=== PATIENT | male | born 1960 | race Caucasian/White ===

== ENCOUNTER 2017-06-25 14:31 | Observation (INO) | payer MEDICARE, OTHER ==
[2017-06-25 16:39] LABS: ADD MAN DIFF? NO
[2017-06-25 16:41] LABS: WHITE BLOOD COUNT 7.4 10^3/ul (4.8-10.8)
[2017-06-25 16:41] LABS: BASOPHILS % 0.5 % (0.0-2.0); EOSINOPHILS # 0.1 10^3/ul (0.0-0.5); EOSINOPHILS % 1.2 % (0.0-7.0); HEMATOCRIT 40.2 % (42.0-52.0); HEMOGLOBIN 13.7 g/dl (14.0-18.0); LYMPHOCYTES # 1.9 10^3/ul (0.8-2.9); LYMPHOCYTES % 25.2 % (15.0-51.0); MEAN CORPUSCULAR HEMOGLOBIN 29.2 pg (29.0-33.0); MEAN CORPUSCULAR HGB CONC 34.1 g/dl (32.0-37.0); MEAN CORPUSCULAR VOLUME 85.7 fl (82.0-101.0); MEAN PLATELET VOLUME 9.7 fl (7.4-10.4); MONOCYTE # 0.5 10^3/ul (0.3-0.9); MONOCYTES % 6.8 % (0.0-11.0); NEUTROPHIL # 4.9 10^3/ul (1.6-7.5); NEUTROPHILS % 65.9 % (39.0-77.0); PLATELET COUNT 225 10^3/UL (140-415); RED BLOOD COUNT 4.69 10^6/ul (4.70-6.10); RED CELL DISTRIBUTION WIDTH 12.9 % (11.5-14.5)
[2017-06-25] MEDS: ASPIRIN 81 MG TAB PO (16:44)
[2017-06-25 17:08] LABS: ANION GAP 18 (8-16); BLOOD UREA NITROGEN 9 mg/dl (7-20); CALCIUM 9.8 mg/dl (8.4-10.2); CARBON DIOXIDE 24 mmol/L (21-31); CHLORIDE 108 mmol/L (97-110); CREATININE 0.82 mg/dl (0.61-1.24); GLUCOSE 94 mg/dl (70-220); POTASSIUM 3.6 mmol/L (3.5-5.1); SODIUM 146 mmol/L (135-144)
[2017-06-25 17:14] LABS: PROTIME 13.3 Sec (11.9-14.9)
[2017-06-25 17:20] LABS: B-TYPE NATRIURETIC PEPTIDE 116 PG/ML (0-125)
[2017-06-25 17:28] LABS: TROPONIN-I < 0.012 ng/ml (0.00-0.12)
[2017-06-25] MEDS ORDERED: ONDANSETRON 4 MG INJ IV ×2 (18:00→19:00)
[2017-06-25] MEDS ORDERED: ACETAMINOPHEN 325 MG TAB PO ×2 (18:00→19:00)
[2017-06-25] MEDS ORDERED: MAGNESIUM HYDROXIDE 30ML CUP PO (19:00)
[2017-06-25] MEDS ORDERED: morphine 2 MG INJ IV (19:00)
[2017-06-25] MEDS ORDERED: DIPHENHYDRAMINE 50 MG CAP PO (19:00)
[2017-06-25] MEDS ORDERED: NACL 0.9% 3 ML SYG IV (19:00)
[2017-06-25] MEDS ORDERED: LORAZEPAM 0.5 MG TAB PO (19:00)
[2017-06-25] MEDS ORDERED: HYDROCODONE/APAP (5/325) TAB PO (19:00)
[2017-06-25] MEDS ORDERED: NITROGLYCERIN (SL) 0.4 MG TAB SL (19:00)
[2017-06-25] MEDS ORDERED: DOCUSATE SODIUM 100 MG CAP PO (19:00)
[2017-06-25] MEDS: [UNRECOGNIZED DRUG - REMARK] XX (19:30)
[2017-06-25 19:37] LABS: CHOL/HDL RATIO 4.5 RATIO; HDL CHOLESTEROL 47 mg/dl (28-71); LDL CHOLESTEROL,CALCULATED 90 mg/dl; TRIGLYCERIDES 374 mg/dl (0-149)
[2017-06-25 19:37] LABS: CHOLESTEROL 212 mg/dl (100-200)
[2017-06-25 19:53] LABS: HEMOGLOBIN A1C 5.5 % (0-5.9)
[2017-06-25] MEDS ORDERED: hydrALAzine 20 MG INJ IV (20:00)
[2017-06-25] MEDS: ATORVASTATIN 40 MG TAB PO (20:18)
[2017-06-25] MEDS: LOSARTAN 50 MG TAB PO (20:18)
[2017-06-25] MEDS ORDERED: TRIFLUOPERAZINE HCL PO (21:00)
[2017-06-26 00:29] LABS: CREATINE KINASE 125 IU/L (23-200)
[2017-06-26 00:33] LABS: CK INDEX 0.6
[2017-06-26 00:34] LABS: CK-MB 0.76 ng/ml (0.0-2.4); TROPONIN-I < 0.012 ng/ml (0.00-0.12)
[2017-06-26 05:54] LABS: ADD MAN DIFF? NO
[2017-06-26 05:58] LABS: WHITE BLOOD COUNT 7.2 10^3/ul (4.8-10.8)
[2017-06-26 05:58] LABS: BASOPHILS % 0.6 % (0.0-2.0); EOSINOPHILS # 0.2 10^3/ul (0.0-0.5); EOSINOPHILS % 2.8 % (0.0-7.0); HEMATOCRIT 37.7 % (42.0-52.0); HEMOGLOBIN 12.6 g/dl (14.0-18.0); LYMPHOCYTES # 2.5 10^3/ul (0.8-2.9); LYMPHOCYTES % 35.2 % (15.0-51.0); MEAN CORPUSCULAR HEMOGLOBIN 29.2 pg (29.0-33.0); MEAN CORPUSCULAR HGB CONC 33.4 g/dl (32.0-37.0); MEAN CORPUSCULAR VOLUME 87.3 fl (82.0-101.0); MEAN PLATELET VOLUME 10.4 fl (7.4-10.4); MONOCYTE # 0.6 10^3/ul (0.3-0.9); MONOCYTES % 8.9 % (0.0-11.0); NEUTROPHIL # 3.7 10^3/ul (1.6-7.5); NEUTROPHILS % 52.2 % (39.0-77.0); PLATELET COUNT 229 10^3/UL (140-415); RED BLOOD COUNT 4.32 10^6/ul (4.70-6.10); RED CELL DISTRIBUTION WIDTH 12.9 % (11.5-14.5)
[2017-06-26 06:17] LABS: ALBUMIN 3.6 g/dl (3.3-4.9); BLOOD UREA NITROGEN 15 mg/dl (7-20); CALCIUM 9.4 mg/dl (8.4-10.2); CARBON DIOXIDE 24 mmol/L (21-31); CHLORIDE 106 mmol/L (97-110); GLUCOSE 93 mg/dl (70-220); MAGNESIUM 1.8 mg/dl (1.7-2.5); PHOSPHORUS 4.9 mg/dl (2.5-4.9); SODIUM 144 mmol/L (135-144)
[2017-06-26 06:21] LABS: ANION GAP 18 (8-16); POTASSIUM 3.6 mmol/L (3.5-5.1)
[2017-06-26 06:30] LABS: CK-MB 0.53 ng/ml (0.0-2.4); TROPONIN-I < 0.012 ng/ml (0.00-0.12)
[2017-06-26 06:52] LABS: CK INDEX 0.5; CREATINE KINASE 114 IU/L (23-200)
[2017-06-26] MEDS: FAMOTIDINE 20 MG TAB PO (08:07)
[2017-06-26] MEDS: LOSARTAN 50 MG TAB PO (08:07)
[2017-06-26] MEDS: FENOFIBRATE 145 MG TAB PO (08:07)
[2017-06-26] MEDS ORDERED: EZETIMIBE 10 MG TAB PO (09:00)
[2017-06-26] MEDS ORDERED: LOSARTAN 50 MG TAB PO (09:00)
[2017-06-26] MEDS: INFLUENZA VIRUS VACCINE 0.5 ML SYG IM* (16:59)
[2017-06-26] MEDS ORDERED: PANTOPRAZOLE (EC) 40 MG TAB PO (18:00)
[2017-06-26] MEDS ORDERED: TRIFLUOPERAZINE HCL 2 MG PO (21:00)
[2017-06-27] MEDS ORDERED: ASPIRIN (EC) 81 MG TAB PO (09:00)
== END 2017-06-26 18:03 | disposition home or self-care (01) ==
LOC: E/R 14:31 → MS3 17:55
DX: R07.89 Other chest pain (principal); E78.5 Hyperlipidemia, unspecified; I10 Essential (primary) hypertension; E78.1 Pure hyperglyceridemia; F17.200 Nicotine dependence, unspecified, uncomplicated; Z96.651 Presence of right artificial knee joint; Z90.49 Acquired absence of other specified parts of digestive tract; Z23 Encounter for immunization
CPT/HCPCS: 71045; 80048; 80061; 80069; 82550; 82553; 83036; 83735; 83880; 84484; 85025; 85610; 90686; 93005; 93306; 99285-25